=== PATIENT | female | born 1985 ===

== ENCOUNTER 2016-08-13 06:51 | Inpatient (IN) | payer OTHER ==
[2016-08-13] MEDS ORDERED: OXYTOCIN IN LR 500 ML IV ONE ×2 (07:04→08:12)
[2016-08-13] MEDS ORDERED: LACTATED RINGERS 1,000 ML IV PRN (07:04)
[2016-08-13 07:47] VITALS: BMI 34.5
[2016-08-13] MEDS ORDERED: IV START KIT ONE (08:11)
[2016-08-13] MEDS ORDERED: MINERAL OIL 25 ML BOT ONE (08:11)
[2016-08-13] MEDS ORDERED: LIDOCAINE 1% (PRES FREE) 30 ML VIAL ONE (08:11)
[2016-08-13] MEDS ORDERED: LACTATED RINGERS 1,000 ML ONE (08:11)
[2016-08-13] MEDS ORDERED: OXYTOCIN 10 UNITS/ML VIAL ONE (08:11)
[2016-08-13] MEDS ORDERED: LIDOCAINE Viscous 2% 15 ML UDCUP ONE (08:12)
[2016-08-13] MEDS ORDERED: PUMP TUBING ONE (08:12)
[2016-08-13 10:22] LABS: HEMATOCRIT 40.7 % (37.0-47.0); HEMOGLOBIN 13.2 gm/l (12.0-16.0); MEAN CELL VOLUME 89.3 fl (81.0-99.0); MEAN CORPUSCULAR HEMOGLOBIN 28.9 pg (27.0-31.0); MEAN CORPUSCULAR HGB CONC 32.4 g/dl (33.0-37.0); RED CELL DISTRIBUTION WIDTH 20.1 % (11.5-14.5)
[2016-08-13] MEDS ORDERED: EPIDURAL PROCEDURE TRAY ONE (11:05)
[2016-08-13] MEDS: OXYTOCIN IN LR 500 ML IV PRN ×4 (11:21→23:41)
--- NOTE | 2016-08-13 11:36 | PCMAN ---
OB Admission Note - History : 3 Term: 2 : 0 Abortions (S&E): 0 Livin EDC:: 08/13/16 (LMP and 15wk us) Gestational Age (weeks): 40 Days (#/7): 0 Admit Cervical Dilation:: 3 Admit Cervical Effacement (%):: 40 Admit Station:: -1 Admit Presentaton:: cephalic Membrane Status: Intact Membranes Comment:: intact Contractions: Yes Contraction Frequency:: q 3-7min Heart Rate:: 145 Status:: Cat. I appropriate for IA EFW:: 9lbs Summary of Course:: Onset to care at 10wks x 8 visits with [facility] then [facility] for x 3 visits with CNMs and delivery. complicated by anemia ([place] Hgb 9.3). OB hx includes x2 8lb1oz and 04ws4rn without complication (neg shoulder dystocia, pph). BMI 29.2, TWG 51lbs. Had anormal 1hr GTT, did not have GDM. GBS neg. 39wk u/s for S>D indicated possible macrosomia with EFW 4660gm +/- 700gm and Kathy requested elective IOL. Desires epidural for pain management. - Labs Blood Type: B (+) positive Hct/Hgb:: 9.3 Rubella Status: Non-immune GBS Status: Negative Other Labs:: 1hr GTT 120 - Review of Systems ros neg - Physical Exam General: Afebrile Psych/Mental Status: Mood/Affect Appropriate, Judgment/Insight Intact, Bonding Well Neurological: Alert, Oriented x 4, Normal Gait, Normal Speech Lungs: Clear to Auscultation Bilaterally Cardiovascular: Regular Rate and Rhythm Genitourinary: Normal Female Genitalia Rectal Exam: Deferred Extremities: Full ROM Skin: Normal Color, Warm, Dry, Intact - Problems (1) Elective induction of labor planned Status: Acute Code: [id number] Assessment/Plan: A: with IUP at 40w0d Elective IOL for suspected macrosomia FHT: Cat. I, IA appropriate Not in labor Suspected malposition, OP P: Admit to FBC, IV placed, appropriate for IA until contraindicated (epidural placement or oxytocin administration) Pitocin induction with AROM when possible Epidural ordered (2) Macrosomia Status: Acute Code: P08.0 Assessment/Plan: A: with IUP at 40w0d Elective IOL for suspected macrosomia FHT: Cat. I, IA appropriate Not in labor Suspected malposition, OP P: Admit to FBC, IV placed, appropriate for IA until contraindicated (epidural placement or oxytocin administration) Pitocin induction with AROM when possible Epidural ordered
[2016-08-13] MEDS: LACTATED RINGERS 1,000 ML IV SCH ×2 (16:50→23:19)
[2016-08-13] MEDS ORDERED: EPIDURAL PUMP SET ONE (18:57)
[2016-08-13] MEDS ORDERED: FENTANYL/ROPIVACAINE EPIDURAL 250 ML EP ONE (18:57)
--- NOTE | 2016-08-13 19:16 | PDOC36 ---
Provider Note Subject: labor note Note: s: Kathy has been laboring in many positions. states contractions are stronger but she is coping well currently. she states pain is getting worse and she is ready for epidural. o: Ve: 4/70/-2, soft, posterior ctx: q 2-4min, lasting 70-120sec FHT: baseline 125/moderate/accels present/decels absent. Present in the room at 1715 when unable to trace FHR due to H&K position. FHR auscultated in 130's despite inability of monitor to trace heart tones, and movement auscultated and palpated. a: with IUP at 40w0d elective IOL for macrosomia latent labor FHT: Cat. I when traceable p: encourage maternal position changes. epidural anesthesia per patient request/plan. AROM augmentation when pt is comfortable handoff given to on coming CNM
[2016-08-13] MEDS ORDERED: LACTATED RINGERS 1,000 ML IV SCH (19:47)
[2016-08-13] MEDS ORDERED: ONDANSETRON 4 MG/2ML 2 ML VIAL IV PRN (19:47)
[2016-08-13] MEDS ORDERED: DIPHENHYDRAMINE HCL 50 MG/1 ML VIAL IV PRN (19:47)
[2016-08-13] MEDS ORDERED: EPHEDRINE SULFATE 50 MG/ML 1ML VIAL IV PRN (19:47)
[2016-08-13] MEDS ORDERED: LACTATED RINGERS 500 ML IV PRN (19:47)
[2016-08-13] MEDS ORDERED: NALBUPHINE HCL 20 MG/ML AMP IV PRN (19:47)
[2016-08-13] MEDS ORDERED: SODIUM CHLORIDE 0.9% 500 ML IV PRN (19:47)
[2016-08-13] MEDS ORDERED: FENTANYL/ROPIVACAINE EPIDURAL 250 ML EP SCH (19:47)
[2016-08-13] MEDS ORDERED: NALOXONE HCL 0.4 MG/ML VIAL IV PRN (19:47)
[2016-08-13] MEDS ORDERED: METOCLOPRAMIDE HCL 5 MG/ML 2ML VIAL IV PRN (19:47)
--- NOTE | 2016-08-13 20:15 | PDOC36 ---
Provider Note Subject: Labor Progress Note Note: S: Resting in bed. Comfortable with epidural. Agrees to AROM augmentation. O: EFM: 130/moderate variability/accels present/decels absent [place]: q 2-3 mins;mild to moderate to palpation SVE: 3.5/30/-3 Pitocin at 9 mU/min A: IOL for suspected macrosomia Early labor with pitocin augmentation Not candidate for AROM FHR Cat 1 Epidural anesthesia P: Discussed with Dr. Aldridge needling membranes with FSE v misoprostol to thin cervix v. continued pitocin augmentation. Dr. Aldridge recommends continuing pitocin augmentation. Agrees that patient is not candidate for AROM. Discussed recommendation with patient. Will reassess candidacy for AROM in 4 hours. Continue with pitocin augmentation.
[2016-08-13] MEDS: MENTHOL/CETYLPYRD 1 EACH LOZENGE PO PRN (22:22)
--- NOTE | 2016-08-14 00:31 | PDOC36 ---
Provider Note Subject: Labor Progress Note Note: S: Comfortable with epidural. Denies feeling any pressure. O: EFM: 120/fifteen min segment of minimal to absent variability. Pitocin decreased and with scalp stimulation, fetus returned to moderate variability/ decels absent [place]: q 2-3 mins, firm to palpation SVE: 5/80/-2/BOWI (RN reported leaking fluid at 2350) Pitocin at 12mU/min A: IOL for suspected macrosomia Active labor Pitocin augmentation FHR Cat 2 due to episode of absent variability P: Pitocin discontinued. Restart with 30 mins of reactive tracing. Patient given fluids and positioned on side. Will reassess SVE in 4 hours or PRN.
[2016-08-14] MEDS: LACTATED RINGERS 1,000 ML IV SCH (01:30)
[2016-08-14] MEDS: OXYTOCIN IN LR 500 ML IV PRN (02:34)
--- NOTE | 2016-08-14 04:38 | PDOC36 ---
Provider Note Subject: Labor Progress Note Note: S: Resting in bed. Was able to sleep on and off. O: EFM: 120 [place]: q 3-4 mins, moderate to strong to palpation SVE: 6/100/-2 Pitocin at 2 mU/min VS: BP 107/60, HR 81, T 98.0F A: Active labor Fully effaced Suspected malposition FHR Cat 2 AROM augmentation P: AROM for clear fluid. Change positions q 30 mins. Closely monitor maternal and status.
[2016-08-14] MEDS: MENTHOL/CETYLPYRD 1 EACH LOZENGE PO PRN ×2 (04:55→19:34)
--- NOTE | 2016-08-14 06:34 | PCMDEL ---
Delivery Note - Labor 1st stage (hr/min):: 5 hours 45 mins 2nd stage (hr/min):: 25 mins 3rd stage (hr/min):: 10 mins Total (hr/min):: 6 hours 20 mins Pushed (hr/min):: 25 mins - Delivery Delivery (Date): 08/14/16 Delivery (Time): 05:45 Infant Gender: Female Presentation: Cephalic Position: OA Umbilical Cord: 3 Vessel Delayed Cord Clamping:: > 3 min 1 Minute Total: 9 5 Minute Total: 9 Placenta:: Intact/[place] EBL:: 300 Perineum:: 1st degree perineal Suture:: 3.[address] Anesthesia/Meds:: Epidural Length ROM:: 30 mins Comments:: Admitted to [facility] for IOL due to suspected macrosomia from 39 week U/S. Received pitocin with minimal cervical change until 12 hours post initiation. Received epidural anesthesia for pain management prior to AROM due to history of rapid labor after AROM. AROM at 6/100/-2 with successful rotation and progression to complete dilation. FHTs Cat 2 during first stage due to periods of minimal and absent variability. Accels always present with scalp stimulation. Pushed effectively in Semi[place]Fow[place] for of vigorous female infant over shallow first degree laceration. OA to DUNG with easy delivery of anterior shoulder. Terminal bradycardia to 60s with but FHTs above 100 after delivery. Infant placed directly on maternal abdomen. DCC x 5 mins. Placed skin to skin. AMTSL with IV pitocin. Spontaneous delivery of intact placenta in [place] presentation with gentle cord traction. Fundus firm after massage. Shallow first degree laceration approximated with two stitches. Maternal and status stable in immediate period.
[2016-08-14] MEDS ORDERED: DOCUSATE SODIUM 100 MG CAPSULE PO PRN (06:50)
[2016-08-14] MEDS ORDERED: MEASLES,MUMPS&RUBELLA VACCINE 0.5 ML VIAL SUB-Q V ONE (06:50)
[2016-08-14] MEDS ORDERED: BENZOCAINE/MENTHOL 60 APPLIC/BOT TP PRN (06:50)
[2016-08-14] MEDS ORDERED: LANOLIN 50 APPLIC/7G TUBE TP PRN (06:50)
[2016-08-14] MEDS: IBUPROFEN 800 MG TABLET PO PRN ×3 (08:35→22:47)
[2016-08-14] MEDS: HYDROCODONE/ACETAMINOPHEN 5/325MG TABLET PO PRN ×2 (17:02→22:47)
[2016-08-15] MEDS: HYDROCODONE/ACETAMINOPHEN 5/325MG TABLET PO PRN (04:36)
[2016-08-15 04:40] VITALS: BP 116/78
[2016-08-15] MEDS: IBUPROFEN 800 MG TABLET PO PRN ×2 (05:45→11:50)
[2016-08-15] MEDS: MENTHOL/CETYLPYRD 1 EACH LOZENGE PO PRN (05:46)
[2016-08-15 06:34] LABS: HEMATOCRIT 35.1 % (37.0-47.0); HEMOGLOBIN 11.4 gm/l (12.0-16.0)
--- NOTE | 2016-08-15 10:42 | PDOC39B ---
Hospital Course: ADMIT DATE: 08/13/16 DISCHARGE DATE: 08/15/16 ADMISSION DIAGNOSES: IOL for suspected macrosomia PROCEDURES: IOL, HISTORY OF PRESENT ILLNESS: 30 year old G3 T2 L2 at 40 weeks 1 days presenting for IOL due to suspected macrosomia. HOSPITAL COURSE: By day of discharge the patient is ambulating, eating, voiding , and passing flatus without difficulty. Pain is controlled and lochia is appropriate. She is exclusively and has a handpump to use at home. She reports good family support and her will be taking about 1/ 5wks off work. She denies a hx of depression or anxiety. She is considering the mini-pill for contraception, but is open to other methods as well. She desires to have her follow-up care with [facility] midwives instead of at [facility], as originally planned. - Physical Exam Vital Signs: Temp Pulse Resp BP Pulse Ox 97.7 F 76 15 116/78 08/15/16 04:30 08/15/16 04:30 08/15/16 04:30 08/15/16 04:30 General: Afebrile Psych/Mental Status: Mood/Affect Appropriate, Judgment/Insight Intact, Bonding Well Lungs: Clear to Auscultation Bilaterally Cardiovascular: Regular Rate and Rhythm Breast: Soft, Skin intact, Nipples Intact Fundus: Firm, Midline, At Umbilicus (hasnt' voided in 2.5hrs) Genitourinary: Normal Female Genitalia Lochia: Light Extremities: Full ROM Skin: Normal Color - Discharge Diagnosis (1) care and examination of lactating mother Status: Acute Assessment/Plan: A: 30yo Day 1 without difficulty Lochia stable P: : encouraged on-demand feedings, return to [facility] PRN Education: handout given and reviewed in Wallisian. Warning signs discussed. Contraception: considering mini-pill. Reviewed other options and encouraged her to consider a LARC for convenience and efficacy. Rx: ibuprofen and colace Follow-up: 2wk PP visit with [facility] in [place] on 08/28/15 at 11am. (Pt had previously planned to have care at [facility], but she changed her mind). - Discharge Plan Condition: Stable Disposition: Home Additional Instructions: Felicidades con el nacimiento de Shaniqua! Usted tiene adolph gadiel de siguimiento programada con las parteras el jaymie 30 de enero a last 11am en [place]. Si usted necesita cambial palacios gadiel o si tiene alguna preocupacion o pregunta, no dude en llamar a la clinica a las [phone]. Prescriptions: Docusate Sodium [COLACE 100 MG CAPSULE (SHF)] 100 mg PO DAILY PRN #10 cap PRN Reason: Constipation Ibuprofen [Motrin] 1 tab PO Q6H PRN #30 tablet PRN Reason: Pain
== END 2016-08-15 13:24 | disposition home or self-care (01) | DRG 775 ==
LOC: EDSTATUS 06:51 → FBC 06:53
PROVIDERS: ADMIT Advanced Practice Midwife; ATTEND Advanced Practice Midwife
PROC: 3E033VJ Introduction of Other Hormone into Peripheral Vein, Percutaneous Approach (ICD-10-PCS; 2016-08-13)
PROC: 00HU33Z Insertion of Infusion Device into Spinal Canal, Percutaneous Approach (ICD-10-PCS; 2016-08-13)
PROC: 10E0XZZ Delivery of Products of Conception, External Approach (ICD-10-PCS; principal; 2016-08-14)
PROC: 0HQ9XZZ Repair Perineum Skin, External Approach (ICD-10-PCS; 2016-08-14)
PROC: 10907ZC Drainage of Amniotic Fluid, Therapeutic from Products of Conception, Via Natural or Artificial Opening (ICD-10-PCS; 2016-08-14)
PROC: 3E0234Z Introduction of Serum, Toxoid and Vaccine into Muscle, Percutaneous Approach (ICD-10-PCS; 2016-08-15)
DX: O36.63X0 Maternal care for excessive fetal growth, third trimester, not applicable or unspecified (principal); O99.02 Anemia complicating childbirth; O32.8XX0 Maternal care for other malpresentation of fetus, not applicable or unspecified; O76 Abnormality in fetal heart rate and rhythm complicating labor and delivery; O70.0 First degree perineal laceration during delivery; Z86.59 Personal history of other mental and behavioral disorders; Z23 Encounter for immunization; Z3A.40 40 weeks gestation of pregnancy; Z37.0 Single live birth